=== PATIENT | male | born 1940 | race Caucasian/White ===

== ENCOUNTER 2019-02-09 06:28 | Inpatient (IN) | payer OTHER ==
--- NOTE | 2019-02-06 17:36 | PREOPHP ---
DATE OF ADMISSION: 02/09/2019 The patient is to have surgery with Dr. Cherie Perez on 02/09/2019. REASON FOR CONSULTATION: Consultation was requested by Dr. Cherie Perez for medical evaluation and clearance of a 78-year-old gentleman about to undergo surgery. Thank you, Dr. Perez, for allowing us to participate in the care of this patient. HISTORY OF PRESENT ILLNESS: Andrew Gambino, a 78-year-old gentleman, issues with his right shoulder, currently being admitted for total shoulder replacement on the right shoulder. The patient has already had a shoulder replacement on the left shoulder which turned out well for him and is currently being admitted for doing the other shoulder. PAST MEDICAL AND SURGICAL HISTORY: From a medical standpoint, his only encounter was for paroxysmal atrial fibrillation which was successfully treated with ablative therapy. From a surgical standpoint, he has had the following surgeries:. Prostatectomy done abdominally for large prostate, had lumbar spine surgery done, also has had epidurals done in the past.. Other than that, he has really not fractured any major bones, has been relatively healthy and has recently retired. MEDICATIONS: He is currently taking the following medications: 1. Atenolol 25 mg a day. 2. Flecainide 100 mg in the morning, 50 in the evening. 3. Xarelto 20 mg daily. ALLERGIES: HE IS NOT ALLERGIC TO ANY MEDICATIONS. SOCIAL HISTORY: The patient is , has 2 children. He does not smoke. Alcohol socially. Does not drink coffee. Has no trouble sleeping at night and as mentioned, he is retired. FAMILY HISTORY: Both parents are . Father at age 49 of lung cancer, also had heart issues. Mother age 93, had dementia. There is a family history of heart, cancer. No diabetes, hypertension or stroke. REVIEW OF SYSTEMS HEENT: Denies any significant headaches. CARDIORESPIRATORY: Denies any chest pain or shortness of breath. GASTROINTESTINAL: No melena or hematemesis. GENITOURINARY: No urgency, frequency. MUSCULOSKELETAL: Positive for right shoulder pain. NEUROPSYCHIATRIC: Unremarkable. GENERAL HEALTH: As above. PHYSICAL EXAMINATION: VITAL SIGNS: The patient's blood pressure was 134/70, pulse was 68 and regular, respirations were 18, temperature 98.1. Height is 5 feet and 7-3/4 inches, weight 205.2 pounds. GENERAL: The patient was noted to be a well-developed, well-nourished male, alert and cooperative, in no apparent acute distress, oriented to time, place and person. HEENT: Head was atraumatic. Eyes: Pupils were equal, reactive to light and accommodation. Fundi were benign. Tympanic membranes were unremarkable. Nose was negative. Mouth was unremarkable. Fair oral hygiene was present. NECK: Supple without any rigidity. Trachea was midline. Thyroid was within normal limits. Neck veins were flat. Carotid pulses were equal. No bruits were heard. BACK: Unremarkable. CHEST: Symmetrical. BREASTS AND AXILLARY: Did not reveal any masses. LUNGS: Clear to percussion and auscultation. HEART: PMI is 5th intercostal space at the midclavicular line. Regular sinus rhythm was noted. No significant murmurs, rubs or gallops being elicited. ABDOMEN: Soft. Good bowel sounds were noted. No significant organomegaly, masses or tenderness. GENITALIA: Normal male external genitalia. RECTAL AND PROSTATIC: Per urology up-to-date. EXTREMITIES: Did not reveal any clubbing, edema or cyanosis. Peripheral pulses were physiologic. SKIN: Moist, warm without any eruptions. No gross lymphadenopathy was noted. NEUROLOGIC: Grossly intact. IMPRESSION: 1. Degenerative joint disease, right shoulder, status post total shoulder replacement on the left side. 2. Paroxysmal atrial fibrillation. 3. Hypertension. 4. Degenerative joint disease. 5. Stable health. REVIEW OF LABORATORY AND OTHER DATA: Revealed the following: The patient's chemistry panel including electrolytes, glucose, BUN, creatinine, calcium, uric acid, proteins, liver function test, magnesium, CBC, UA, PT and PTT were basically normal for patient who has been on Xarelto. The patient's bladder residual postvoid was 19 mL. The patient's EKG revealed sinus bradycardia with left axis, no acute ST-T wave changes being noted. The patient's chest x-ray revealed degenerative joint disease, evidence of total shoulder replacement on the left side, no acute infiltrates nor with acute cardiopulmonary changes being noted. DISCUSSION: Dr. Perez, I see no contraindication in this patient undergoing current proposed surgery under desired form of anesthesia. We will be more than happy to follow him along with you during his stay at [facility]. Thank you again, Dr. Perez, for allowing us to participate in the care of this patient. Dictated By: SERGEY DOMINIQUE MD SS/NTS Conf#: [id number] DID#: [id number] CC: CHERIE PEREZ MD;*EndCC* MTDD
[2019-02-06 17:57] VITALS: Ht 177.8 cm; Wt 89.5 kg
[~2019-02-09] VITALS: Ht 177.8 cm; Wt 89.5 kg
[2019-02-09] VITALS (23 sets, daily range): BP systolic 116–152; BP diastolic 57–80; PULSE 50–78; RESP 16–29
--- NOTE | 2019-02-09 05:59 | HPN ---
Date/Time of Note Date/Time of Note DATE: 02/09/19 TIME: 05:59 Interval H&P Admission Note Pt. seen H&P reviewed: No system changes CHERIE PEREZ MD Feb 09, 2019 05:59
--- NOTE | 2019-02-09 06:03 | OPR ---
Date/Time of Note Date/Time of Note DATE: 02/09/19 TIME: 05:59 Operative Report Procedure Date: Feb 09, 2019 Preoperative Diagnosis Posttraumatic arthritis right shoulder Postoperative Diagnosis 1. Posttraumatic arthritis right glenohumeral joint 2. Posttraumatic arthritis right acromioclavicular joint 3. Partial biceps tendon tear right shoulder Operation/Procedure Performed 1. Right total shoulder arthroplasty 2. Right open distal clavicle excision 3. Right open biceps tenodesis 4. Right shoulder injection of PRP Surgeon see signature line Manufacturing Coordinator Hussain Grove MD Anesthesia Type: general Estimated Blood Loss: 100 - 150 ml's Transfusion none Specimen See op note Grafts/Implants See op note Complications none Pt Condition Post Procedure: stable Disposition: PACU Procedure Description MATERIAL MAN SURGEON: Hussain Grove MD was asked to be present for this case at my request. Assistance was necessary as a result of the highly technical nature of this operation. When performing an open total shoulder replacement, it is critical to have a trained assistant sales director who is an expert in handling the extremity and assisting the surgeon in tasks such as suture management and knot-tying techniques as well as implants. This assistance cannot be performed by a manufacturing technician, as it is considered an integral part of the procedure and the assistant sales director should be compensated for their time. PROCEDURE IN DETAIL: Following the administration of general anesthesia supplemented with a peripheral nerve block for postoperative pain control, the patient was examined under anesthesia. Examination of the right shoulder revealed very significant stiffness including a forward flexion of about 95 degrees abduction 80 degrees maximal external rotation 35 degrees with severe crepitus. The patient was then placed in the beach chair position. The right upper extremity was prepped in the antecubital fossa. 60 cc of blood were then aspirated and passed off to the artists' booking representative from the company to prepare the PRP solution that would be used for infiltration into the humeral canal. Sterile prep and drape of the right shoulder was then undertaken. An extended deltopectoral incision was then carried through the interval exposing the conjoined tendon and retracting it medially. The subscapularis was incised and mobilized. Severe arthritic changes were noted with very large peripheral osteophytes. Multiple loose bodies were removed from the joint. The biceps tendon was identified and it had moderate fraying within the groove. The intra- articular portion was resected and the biceps was tenodesed to the bicipital groove with solid fixation using multiple #2 sutures. A humeral head osteotomy was then created in the appropriate degree of version and inclination. The humerus was retracted and the glenoid was exposed. Peripheral osteophytes were removed and a complete capsulectomy performed. The central canal of the glenoid was then entered and prepared for a size 44 m Depuy anchor peg glenoid. A Depuy anchor peg glenoid was then cemented into position with solid fixation. The humerus was then reamed and prepared for a 14 mm humeral component with a 48 x 18 mm humeral head. The humeral canal was thoroughly irrigated. The PRP solution was then placed within the humeral canal. The actual components were implanted with solid fixation. The subscapularis was reapproximated using #2 sutures that were passed circumferentially around the humerus with a watertight closure of the interval. The arm was taken through full range of motion with no evident instability. The joint was then thoroughly irrigated, the deep tissues were approximated using #1 suture followed by closure of the deep layer using 2-0 Monocryl. The skin was closed using 4-0 Monocryl suture, and a Prenio dressing. An Ultrasling was then applied. The patient was awakened and transported to the recovery room in stable condition. Estimated blood loss for this procedure was 200 cc. Radiographs will be obtained in the recovery room. CHERIE PEREZ MD Feb 09, 2019 06:03
[~2019-02-09 06:28] MED LIST: BUPIVACAINE 0.5% (SDV) 30 ML, morphine SULFATE (PF) 8 MG, EPINEPHrine 0.3 MG, KETOROLAC... IRR SCH; CEFAZOLIN 2 GM/50 ML (PMX) 50 ML IVPB ONE; DEXAMETHASONE 1 MG TAB PO ONE; GABAPENTIN 300 MG CAP PO ONE; TRANEXAMIC ACID 1GM/100ML(PMX) 100 ML IVPB ONE
[2019-02-09] MEDS ORDERED: RIVA20TA5 PO (07:32)
[2019-02-09] MEDS ORDERED: LISI10TA2 PO (07:32)
[2019-02-09] MEDS ORDERED: EZET1TAB42 PO (07:32)
[2019-02-09] MEDS ORDERED: FLEC150T PO ×2 (07:32→08:15)
[2019-02-09] MEDS ORDERED: ATEN50TA PO (07:32)
[2019-02-09] MEDS ORDERED: ROPIVACAINE 0.5 % 30 ML VIAL ONE (07:55)
[2019-02-09] MEDS ORDERED: MIDAZOLAM 1 MG/ML 2 ML INJ ONE (07:55)
[2019-02-09] MEDS ORDERED: PROPOFOL 20 ML ONE (07:55)
[2019-02-09] MEDS ORDERED: ROCURONIUM 50 MG INJ ONE (07:55)
[2019-02-09] MEDS ORDERED: FENTAnyl 50 MCG/ML VIAL ONE (07:55)
[2019-02-09] MEDS ORDERED: TRAM50TA PO (08:24)
[2019-02-09] MEDS ORDERED: TRAZ-149 ORAL (08:24)
[2019-02-09] MEDS ORDERED: [UNRECOGNIZED DRUG - CODE] MC (08:24)
[2019-02-09] MEDS ORDERED: GLUC100015 PO (08:24)
[2019-02-09] MEDS ORDERED: MULTI PO (08:24)
[2019-02-09] MEDS ORDERED: HYDR-3601 ORAL (08:24)
[2019-02-09] MEDS ORDERED: LACTATED RINGER'S 1,000 ML IV* SCH (08:30)
--- NOTE | 2019-02-09 08:32 | PREAC ---
Date/Time of Note Date/Time of Note DATE: 02/09/19 TIME: 08:30 Anesthesia Eval and Record Evaluation Time Pre-Procedure Interview DATE: 02/09/19 TIME: 08:30 Age 78 Sex male NPO: 8 hrs Preoperative diagnosis Right Shoulder OA Planned procedure Right Total Shoulder Replacement Past Medical History Past Medical History: Includes Cardio: Dyslipidemia, Arrythmia (Hx of A-Fib) Surgery & Anesthesia Issues No known issue Meds Anticoagulation: No Beta Melanie within 24 hr: No Reason Beta Melanie not given: Pt. not on B-Melanie Reported Medications Hydrocodone Bit-Acetaminophen (Hydrocodone Bit-APAP) 5-325MG Tablet, 1 TAB ORAL Q6 PRN for PAIN LEVEL 7-10 02/09/19 Trazodone Hcl* (Desyrel*) 50 Mg Tab, 1 TAB ORAL QHS PRN for ANXIETY 02/09/19 Tramadol Hcl* (Ultram*) 50 Mg Tablet, 50 MG PO Q6H PRN for PAIN, TAB 02/09/19 Chondroitin Sulfate A Sodium (Chondroitin Sulfate) 5,000 Gm Powder, 1600 GM MC DAILY 02/09/19 Glucosamine Sulfate 2KCL (GLUCOSAMINE) 1,000 Mg Tablet, 1000 MG PO DAILY, TAB 02/09/19 Multivitamins* (Theragran*) 1 Tab Tab, 1 TAB PO DAILY, TAB 02/09/19 Flecainide Acetate* (Flecainide Acetate*) 150 Mg Tablet, 150 MG PO DAILY, TAB 02/09/19 Flecainide Acetate* (Flecainide Acetate*) 150 Mg Tablet, 150 MG PO DAILY, TAB 02/09/19 Rivaroxaban* (Xarelto*) 20 Mg Tablet, 20 MG PO WITH DINNER, TAB 02/09/19 Lisinopril* (Lisinopril*) 10 Mg Tablet, 10 MG PO DAILY, #30 TAB 02/09/19 Ezetimibe/Simvastatin (Vytorin 10-40 mg Tablet) 1 Each Tablet, 1 EACH PO DAILY, TAB 02/09/19 Atenolol* (Atenolol*) 50 Mg Tablet, 50 MG PO DAILY, #30 TAB 02/09/19 Current Medications Tranexamic Acid 100 ml @ 200 mls/hr Pre-op ONCE IVPB ; Start 02/09/19 at 09:00; Stop 02/09/19 at 09:29 Bupivacaine HCl/ Morphine Sulfate/ Epinephrine/ Ketorolac Tromethamine/ Clonidine/Sodium Chloride/ Vancomycin HCl INTRA-OP IRR ; Start 02/09/19 at 09:00 Cefazolin Sodium/ Dextrose 50 ml @ 100 mls/hr PRE-OP ONCE IVPB ; Start 02/09/19 at 09:00; Stop 02/09/19 at 09:29 Dexamethasone (Decadron) 2 mg PREOP ONCE PO Last administered on 02/09/19at 07:15; Admin Dose 2 MG; Start 02/09/19 at 09:00; Stop 02/09/19 at 09:01 Gabapentin (Neurontin) 300 mg ONCE ONCE PO Last administered on 02/09/19at 07:15; Admin Dose 300 MG; Start 02/09/19 at 09:00; Stop 02/09/19 at 09:01 Lactated Ringer's 1,000 ml @ 0 mls/hr Q0M IV* Last administered on 02/09/19at 07:16; Admin Dose 20 MLS/HR; Start 02/09/19 at 08:30; Stop 02/09/19 at 20:30 Meds reviewed: Yes Allergies Coded Allergies: No Known Allergy (Unverified , 02/06/19) Allergies Reviewed: Yes Labs/Studies Labs Reviewed: Reviewed by anesthesiologist test: N/A Studies: ECG (SB), CXR (n/a) Pre-procedure Exam Last vitals Vital Signs Date Temp Pulse Resp B/P (MAP) Pulse Ox O2 O2 Flow FiO2 Time Delivery Rate 02/09/19 98.2 50 16 144/67 98 Room Air 07:00 (92) Airway: Adequate mouth opening, Adequate thyromental dist Mallampati: Mallampati II Teeth: Normal Lung: Normal Heart: Normal ASA Physical Status ASA physical status: 3 Emergency: None Planned Anesthetic General/MAC: ETT Nerve block: Brachial plexus (right) Planned Pain Management Single shot nerve block, Parenteral pain med Pre-operative Attestations Prior to commencing anesthesia and surgery, the patient was re-evaluated, there was verification of: *The patient's identity *The results of appropriate recent lab work and preoperative vital signs *The above evaluation not changing prior to induction *Anesthetic plan, risk benefits, alternative and complications discussed with patient/family; questions answered; patient/family understands, accepts and wishes to proceed. UZMA GARCIA MD Feb 09, 2019 08:32
[2019-02-09] MEDS ORDERED: CEFAZOLIN 2 GM/50 ML (PMX) 50 ML IVPB ONE (09:00)
[2019-02-09] MEDS ORDERED: DEXAMETHASONE 1 MG TAB PO ONE (09:00)
[2019-02-09] MEDS ORDERED: BUPIVACAINE 0.5% (SDV) 30 ML, morphine SULFATE (PF) 8 MG, EPINEPHrine 0.3 MG, KETOROLAC... IRR SCH ×7 (09:00)
[2019-02-09] MEDS ORDERED: TRANEXAMIC ACID 1GM/100ML(PMX) 100 ML IVPB ONE (09:00)
[2019-02-09] MEDS ORDERED: GABAPENTIN 300 MG CAP PO ONE (09:00)
[2019-02-09] MEDS ORDERED: TRANEXAMIC ACID 1GM/100ML(PMX) 100 ML ONE (09:05)
[2019-02-09] MEDS ORDERED: THROMBIN (BOVINE) 5,000 UNIT VIAL TP ONE (09:29)
[2019-02-09] MEDS ORDERED: CA CHLORIDE (GM) 10% 10 ML INJ ONE (09:29)
[2019-02-09] MEDS ORDERED: POLYMYXIN/BACITRACIN 1L IRRIG ONE (09:29)
[2019-02-09] MEDS ORDERED: DEXAMETHASONE 4 MG/ML 5 ML INJ ONE (09:33)
[2019-02-09] MEDS ORDERED: ONDANSETRON 4 MG INJ ONE (09:33)
[2019-02-09] MEDS ORDERED: METOCLOPRAMIDE 10 MG INJ ONE (09:33)
[2019-02-09] MEDS ORDERED: PHENYLephrine (100 MCG/ML) 10ML SYG ONE (10:10)
[2019-02-09] MEDS ORDERED: EPHEDrine SULFATE 50 MG/5 ML SYG IV PRN (10:30)
[2019-02-09] MEDS ORDERED: MEPERIDINE 25 MG INJ IV PRN (10:30)
[2019-02-09] MEDS ORDERED: LABETALOL HCL 20MG INJ IV PRN (10:30)
[2019-02-09] MEDS ORDERED: FENTAnyl 50 MCG/ML VIAL IV PRN ×3 (10:30)
[2019-02-09] MEDS ORDERED: ONDANSETRON 4 MG INJ IV PRN ×2 (10:30→11:00)
[2019-02-09] MEDS ORDERED: hydrALAzine 20 MG INJ IV PRN (10:30)
[2019-02-09] MEDS ORDERED: ALBUMIN HUMAN 5% 250 ML IV PRN (10:30)
[2019-02-09] MEDS ORDERED: OXYCODONE/ACETAMINOPHEN (5/325) TAB PO PRN ×2 (10:30)
[2019-02-09] MEDS ORDERED: METOCLOPRAMIDE 10 MG INJ IV PRN (10:30)
[2019-02-09] MEDS ORDERED: HYDROmorphONE 1 MG/5 ML IV SYRINGE IV PRN ×3 (10:30)
[2019-02-09] MEDS ORDERED: DIPHENHYDRAMINE 50 MG INJ IV PRN ×2 (10:30→11:00)
[2019-02-09] MEDS ORDERED: SUGAMMADEX SODIUM 200 MG/2 ML VIAL IV ONE (10:44)
--- NOTE | 2019-02-09 10:56 | PDOCDIS ---
Discharge Instructions DIAGNOSIS Discharge Diagnosis Posttraumatic arthritis right shoulder CONDITION [id number] Patient Condition: [id number] Good HOME CARE INSTRUCTIONS: [id number] Diet Instructions: [id number] Regular ACTIVITY: [id number] Activity Restrictions: [id number] Slowly Increase Activity Keep Limb Elevated [id number] Bathing Restrictions: [id number] Shower FOLLOW UP/APPOINTMENTS Follow-up Plan 2 weeks in the office SCHOOL/WORK RELEASE May return to School/Work with: With Restrictions School/Work Release Comment: 5 pound tabletop usage for 6 weeks CHERIE PEREZ MD Feb 09, 2019 10:56
[2019-02-09] MEDS ORDERED: MAGNESIUM HYDROXIDE 30ML CUP PO PRN (11:00)
[2019-02-09] MEDS ORDERED: ZOLPIDEM 5 MG TAB PO PRN (11:00)
[2019-02-09] MEDS ORDERED: NACL 0.9% 3 ML SYG IV SCH (11:00)
[2019-02-09] MEDS ORDERED: HYDROmorphONE 1 MG/ML SYG IV PRN (11:00)
[2019-02-09] MEDS ORDERED: LOPERAMIDE 2 MG CAP PO PRN (11:00)
[2019-02-09] MEDS ORDERED: oxyCODONE 5 MG TAB PO PRN ×3 (11:00)
[2019-02-09] MEDS ORDERED: KETOROLAC 15 MG INJ IV PRN (11:00)
[2019-02-09] MEDS ORDERED: CEFAZOLIN 1 GM/50 ML (PMX) 0 ML IVPB ONE (11:32)
--- NOTE | 2019-02-09 11:39 | PAC ---
Date/Time of Note Date/Time of Note DATE: 02/09/19 TIME: 11:37 Post-Anesthesia Notes Post-Anesthesia Note Last documented vital signs Vital Signs Date Temp Pulse Resp B/P (MAP) Pulse Ox O2 O2 Flow FiO2 Time Delivery Rate 02/09/19 66 19 134/66 97 Nasal 2.0 11:22 (88) Cannula 02/09/19 97.9 68 16 152/76 97 face mask 6 L 11:26 (101) Activity: WNL Respiratory function: WNL Cardiovascular function: WNL Mental status: Baseline Pain reasonably controlled: Yes Hydration appropriate: Yes Nausea/Vomiting absent: Yes UZMA GARCIA MD Feb 09, 2019 11:39
[2019-02-09] MEDS ORDERED: TRANEXAMIC ACID 1GM/100ML(PMX) 100 ML IVPB SCH (12:30)
[2019-02-09] MEDS: CEFAZOLIN 1 GM/50 ML (PMX) 50 ML IVPB SCH ×2 (14:03→22:53)
[2019-02-09] MEDS: DEXAMETHASONE 2 MG TAB PO SCH ×2 (14:03→18:21)
[2019-02-09] MEDS: ACETAMINOPHEN 500 MG TAB PO SCH ×2 (14:07→18:22)
[2019-02-09] MEDS ORDERED: RIVAROXABAN 20 MG TABLET PO SCH (17:55)
[2019-02-09] MEDS ORDERED: ATORVASTATIN 40 MG TAB PO SCH (21:00)
[2019-02-09] MEDS ORDERED: GABAPENTIN 300 MG CAP PO SCH (21:00)
[2019-02-09] MEDS ORDERED: EZETIMIBE 10 MG TAB PO SCH (21:00)
[2019-02-09] MEDS: SENNA/DOCUSATE NA (8.6MG/50MG) TAB PO SCH (22:54)
[2019-02-10 00:28] VITALS: BP 134/68; PULSE 78; RESP 17
[2019-02-10] MEDS: DEXAMETHASONE 2 MG TAB PO SCH ×2 (00:34→05:59)
--- NOTE | 2019-02-10 05:18 | PN ---
Date/Time of Note Date/Time of Note DATE: 02/10/19 TIME: 05:17 Subjective Patient is awake and alert with no complaints this morning Objective Vitals Vital Signs Date Temp Pulse Resp B/P (MAP) Pulse Ox O2 O2 Flow FiO2 Time Delivery Rate 02/10/19 98.6 78 17 134/68 98 Nasal 00:28 (90) Cannula 02/09/19 2.0 20:00 Intake and Output 02/09/19 02/09/19 02/10/19 1515:00 23:00 07:00 IntakeIntake Total 2050 ml 700 ml 610 ml OutputOutput Total 50 ml 400 ml 1000 ml BalanceBalance 2000 ml 300 ml -390 ml Wound is clean and dry. Neurologically intact. No signs of DVT. Medications Medications Current Medications Atenolol (Tenormin) 50 mg DAILY PO ; Start 02/10/19 at 09:00 Flecainide Acetate (Tambocor) 150 mg DAILY PO ; Start 02/10/19 at 09:00 Lisinopril (Zestril) 10 mg DAILY PO ; Start 02/10/19 at 09:00 Rivaroxaban (Xarelto) 20 mg WITH DINNER PO Last administered on 02/09/19at 18:22; Admin Dose 20 MG; Start 02/09/19 at 17:55 Cefazolin Sodium 50 ml @ 100 mls/hr Q8 IVPB Last administered on 02/09/19at 22:53; Admin Dose 100 MLS/HR; Start 02/09/19 at 14:00; Stop 02/10/19 at 06:29 Senna/Docusate Sodium (Senokot-S) 1 tab BID PO Last administered on 02/09/19at 22:54; Admin Dose 1 TAB; Start 02/09/19 at 21:00 Simethicone (Mylicon) 80 mg TID PRN PO .GAS; Start 02/09/19 at 11:00 Magnesium Hydroxide (Milk Of Mag) 30 ml BID PRN PO .CONSTIPATION; Start 02/09/19 at 11:00 Loperamide HCl (Imodium Cap) 2 mg Q6H PRN PO .DIARRHEA; Start 02/09/19 at 11:00 Dexamethasone (Decadron) 2 mg Q6 PO Last administered on 02/10/19at 00:34; Admin Dose 2 MG; Start 02/09/19 at 12:00; Stop 02/10/19 at 06:01 Gabapentin (Neurontin) 300 mg HS PO Last administered on 02/09/19at 22:54; Admin Dose 300 MG; Start 02/09/19 at 21:00 Acetaminophen (Tylenol Tab) 500 mg Q6 PO Last administered on 02/09/19at 18:22; Admin Dose 500 MG; Start 02/09/19 at 12:00 Oxycodone HCl (Roxicodone) 15 mg Q4H PRN PO .PAIN; Start 02/09/19 at 11:00 Oxycodone HCl (Roxicodone) 10 mg Q4H PRN PO .PAIN; Start 02/09/19 at 11:00 Oxycodone HCl (Roxicodone) 5 mg Q4H PRN PO .PAIN; Start 02/09/19 at 11:00 Hydromorphone HCl (Dilaudid) 1 mg Q4H PRN IV .BREAKTHROUGH PAIN; Start 02/09/19 at 11:00 Ketorolac Tromethamine (Toradol) 15 mg Q6H PRN IV .PAIN; Start 02/09/19 at 11:00 Ondansetron HCl (Zofran Inj) 4 mg Q6H PRN IV NAUSEA/VOMITING; Start 02/09/19 at 11:00 Diphenhydramine HCl (Benadryl) 25 mg Q6H PRN IV .PRURITUS; Start 02/09/19 at 11:00 Zolpidem Tartrate (Ambien) 10 mg HS PRN PO .INSOMNIA Last administered on 02/09/19at 22:54; Admin Dose 10 MG; Start 02/09/19 at 11:00 IV Flush (NS 3 ml) 3 ml per protocol IV ; Start 02/09/19 at 11:00 Atorvastatin Calcium (Lipitor) 40 mg DAILY@21 PO Last administered on 02/09/19at 22:57; Admin Dose 40 MG; Start 02/09/19 at 21:00 EZETIMIBE (Zetia) 10 mg DAILY@2100 PO Last administered on 02/09/19at 22:57; Admin Dose 10 MG; Start 02/09/19 at 21:00 VTE Prophylaxis Risk score (from Nsg)>0 risk: 5 SCD applied (from Ns): Yes Lines/Catheters IV Catheter Type: Saline Lock Concepcion in Place: No Assessment/Plan Assessment/Plan Assessment: Status post total shoulder Plan: Begin physical therapy this morning discharge after CHERIE PEREZ MD Feb 10, 2019 05:18
--- NOTE | 2019-02-10 05:19 | DS ---
Date/Time of Note Date/Time of Note DATE: 02/10/19 TIME: 05:18 Discharge Summary Admission/Discharge Info Admit Date/Time Feb 09, 2019 at 06:28 Discharge Date/Time February 10, 2019 Discharge Diagnosis Posttraumatic arthritis right shoulder Patient Condition: Good Hospital Course Admitted underwent uncomplicated procedure. Following therapy was discharged home Home Meds Reported Medications Hydrocodone Bit-Acetaminophen (Hydrocodone Bit-APAP) 5-325MG Tablet, 1 TAB ORAL Q6 PRN for PAIN LEVEL 7-10 02/09/19 Trazodone Hcl* (Desyrel*) 50 Mg Tab, 1 TAB ORAL QHS PRN for ANXIETY 02/09/19 Tramadol Hcl* (Ultram*) 50 Mg Tablet, 50 MG PO Q6H PRN for PAIN, TAB 02/09/19 Chondroitin Sulfate A Sodium (Chondroitin Sulfate) 5,000 Gm Powder, 1600 GM MC DAILY 02/09/19 Glucosamine Sulfate 2KCL (GLUCOSAMINE) 1,000 Mg Tablet, 1000 MG PO DAILY, TAB 02/09/19 Multivitamins* (Theragran*) 1 Tab Tab, 1 TAB PO DAILY, TAB 02/09/19 Flecainide Acetate* (Flecainide Acetate*) 150 Mg Tablet, 150 MG PO DAILY, TAB 02/09/19 Flecainide Acetate* (Flecainide Acetate*) 150 Mg Tablet, 150 MG PO DAILY, TAB 02/09/19 Rivaroxaban* (Xarelto*) 20 Mg Tablet, 20 MG PO WITH DINNER, TAB 02/09/19 Lisinopril* (Lisinopril*) 10 Mg Tablet, 10 MG PO DAILY, #30 TAB 02/09/19 Ezetimibe/Simvastatin (Vytorin 10-40 mg Tablet) 1 Each Tablet, 1 EACH PO DAILY, TAB 02/09/19 Atenolol* (Atenolol*) 50 Mg Tablet, 50 MG PO DAILY, #30 TAB 02/09/19 Follow-up Plan 2 weeks in the office Primary Care Provider Not On Staff Doctor CHERIE PEREZ MD Feb 10, 2019 05:19
[2019-02-10] MEDS: ACETAMINOPHEN 500 MG TAB PO SCH ×2 (05:59)
[2019-02-10] MEDS: CEFAZOLIN 1 GM/50 ML (PMX) 50 ML IVPB SCH (05:59)
[2019-02-10 08:12] VITALS: BP 140/65; PULSE 67; RESP 18
[2019-02-10] MEDS ORDERED: NON-FORMULARY/PATIENT OWN MED (Ezetimibe/Simvastatin (Vytorin 10-40 mg Tablet) 1 EACH) PO SCH (09:00)
[2019-02-10] MEDS ORDERED: LISINOPRIL 10 MG TAB PO SCH (09:00)
[2019-02-10] MEDS ORDERED: FLECAINIDE 50 MG TAB PO SCH (09:00)
[2019-02-10] MEDS ORDERED: ATENOLOL 50 MG TAB PO SCH (09:00)
[2019-02-10] MEDS: SENNA/DOCUSATE NA (8.6MG/50MG) TAB PO SCH (09:05)
== END 2019-02-10 11:14 | disposition home or self-care (01) | DRG 483 ==
LOC: REC 06:28 → MS1 11:42
PROVIDERS: ADMIT Orthopaedic Surgery; ATTEND Orthopaedic Surgery
PROC: 0LS30ZZ Reposition Right Upper Arm Tendon, Open Approach (ICD-10-PCS; 2019-02-09)
PROC: 0PB90ZZ Excision of Right Clavicle, Open Approach (ICD-10-PCS; 2019-02-09)
PROC: 0RRJ0JZ Replacement of Right Shoulder Joint with Synthetic Substitute, Open Approach (ICD-10-PCS; principal; 2019-02-09 09:30)
DX: M19.111 Post-traumatic osteoarthritis, right shoulder (principal); Z79.02 Long term (current) use of antithrombotics/antiplatelets; G47.33 Obstructive sleep apnea (adult) (pediatric); I10 Essential (primary) hypertension; S46.211A Strain of muscle, fascia and tendon of other parts of biceps, right arm, initial encounter; E78.5 Hyperlipidemia, unspecified
CPT/HCPCS: 86999; 88304; 88311; 97161; C1776; J0171; J0690; J0735; J1100; J1885; J2250; J2274; J2370; J2405; J2765; J2795; J3010; J3370